=== PATIENT | female | born 1960 | race Caucasian/White ===

== ENCOUNTER 2023-06-23 11:41 | Emergency (ER) | payer OTHER, SELFPAY ==
[2023-06-23 11:45] VITALS: BP 125/78; PULSE 70; TEMP 37.2; O2SAT 98; BMI 26.3
--- NOTE | 2023-06-23 11:55 | XR_ITS ---
The [address] [address] Patient Name: EMRE HERNANDEZ MRN: [id number] date: 1960 Sex: F Assigned Patient Location: ER Current Patient Location: ER Accession/Order Number: [id number] Exam Date: 06/23/2023 12:10 Report Date: 06/23/2023 13:59 At the request of: SHANELL DE LOS SANTOS Procedure: XR knee RT 3V EXAM: XR knee RT 3V HISTORY: fall COMPARISON: None. TECHNIQUE: 3 views of the right knee. FINDINGS: Bony alignment appears preserved. Mild tricompartmental marginal spur is noted. Subchondral cystic change at the patella. Small knee joint effusion. No acute fracture identified. No prepatellar soft tissue spine. No radiopaque foreign body is seen. XR/XR knee RT 3V IMPRESSION: 1. No acute fracture identified. 2. Mild to moderate tricompartmental osteoarthritis. 3. Small knee joint effusion. Electronically authenticated by: MOIRA DAVE Date: 06/23/2023 13:59
--- NOTE | 2023-06-23 11:55 | CT_ITS ---
The [address] [address] Patient Name: EMRE HERNANDEZ MRN: [id number] date: 1960 Sex: F Assigned Patient Location: ER Current Patient Location: .[facility] Accession/Order Number: [id number] Exam Date: 06/23/2023 12:10 Report Date: 06/23/2023 13:01 At the request of: SHANELL DE LOS SANTOS Procedure: CT head/brain wo con EXAM: CT head/brain wo con; [id number] REASON FOR EXAM: fall, hit left eyebrow area COMPARISON: CT sinuses 10/31/2019. TECHNIQUE: Axial CT images of the head obtained without contrast. Multiplanar reformats generated at the scanner. Dose reduction technique used: Automated exposure control and/or adjustment of the mA and/or kV according to patient size and/or use of iterative reconstruction technique. FINDINGS: Parenchyma: -Normal parenchymal pattern. -No midline shift or mass effect. Basilar cisterns are patent. -No acute intracranial hemorrhage. -No loss of cortical parikh-white differentiation to indicate acute cortical infarct. Extra-axial spaces: No extra-axial fluid collection or hemorrhage. Ventricles: Normal in size and symmetric. Paranasal sinuses: Sinus mucosal thickening without layering sinus fluid. Mastoid air cells: Partial opacification of the left mastoid air cells. The right mastoid air cells and bilateral middle ears are clear. Orbits: No acute abnormality. Osseous: No acute findings. No facial fracture within the [id number]-[id number]. Soft tissues: Mild soft tissue swelling over the left superior orbital ridge. CT/CT head/brain wo con IMPRESSION: 1. No acute intracranial abnormality demonstrated. 2. No facial fracture within the [id number]. Electronically authenticated by: ISABEL WISE Date: 06/23/2023 13:01
--- NOTE | 2023-06-23 11:56 | ED.LOWEXI1 ---
HPI HPI - Extremity Injury (Lower) General Chief Complaint: Extremity Injury, Lower Stated Complaint: FALL Time Seen by Provider: 06/23/23 11:47 Source: patient Mode of arrival: walk-in History of Present Illness HPI Narrative: 62-year-old female presents because she fell today at 7:45 AM. She slipped on wet steps and hit her left eyebrow area on the metal hand railing. Since then she has been dizzy and lightheaded. No LOC or neck pain. She also hit her right knee and that is been hurting as well. She actually had some discomfort in it for few weeks before she fell as well. No other injury otherwise was sustained. Related Data Previous Rx's ?Medication ?Instructions ?Recorded ibuprofen 800 mg tablet 800 mg PO Q8H PRN pain #20 tabs 06/23/23 Allergies Allergy/AdvReac Type Severity Reaction Status Date / Time No Known Drug Allergies Allergy Verified 06/23/23 11:49 Opioid HPI Opioid Management Most Recent Pain and Opioid Data: Last Pain Scale 5 06/23/23 12:15 Review of Systems ROS Narrative A ten point review of systems is negative except as noted above. Exam Narrative Exam Narrative: Nurses note and vital signs reviewed and patient is not hypoxic. General: The patient appears well and in no apparent distress. Patient is resting comfortably on cart. Skin: Warm, dry, no pallor noted. There is no rash noted. Head: Normocephalic, small hematoma present without laceration of the left eyebrow. Cervical spine nontender. Eye: Normal conjunctiva, no drainage Ears, Nose, Mouth, and Throat: oral mucosa is moist. Nares patent. Cardiovascular: Regular Rate and Rhythm Respiratory: Patient is in no distress, no accessory muscle use, lungs are clear to auscultation, no wheezing, rales or rhonchi Back: non-tender GI: Soft and nontender Musculoskeletal: Right hip and ankle are nontender. She has some tenderness in the right knee with perhaps some minimal swelling. No obvious deformity. Neurological: A&O, normal speech Psychiatric: Cooperative Constitutional Vital Signs, click to edit/add: Last Vital Signs Temp 99.0 F 06/23/23 11:45 Pulse 70 06/23/23 11:45 Resp 16 06/23/23 11:45 BP 125/78 06/23/23 11:45 Pulse Ox 98 06/23/23 11:45 O2 Del Method Room Air 06/23/23 11:45 Course Vital Signs Vital signs: Vital Signs Temperature 99.0 F 06/23/23 11:45 Pulse Rate 70 06/23/23 11:45 Respiratory Rate 16 06/23/23 11:45 Blood Pressure 125/78 06/23/23 11:45 Pulse Oximetry 98 06/23/23 11:45 Oxygen Delivery Method Room Air 06/23/23 11:45 Temperature 99.0 F 06/23/23 11:45 Pulse Rate 70 06/23/23 11:45 Respiratory Rate 16 06/23/23 11:45 Blood Pressure 125/78 06/23/23 11:45 Pulse Oximetry 98 06/23/23 11:45 Oxygen Delivery Method Room Air 06/23/23 11:45 MDM - Extremity Injury (Lower) MDM Narrative Medical decision making narrative: Radiographs showed no acute findings. She has been having issues with that right knee for several weeks and she is referred to orthopedics for follow-up. Treatment diagnosis and follow-up were discussed with the patient. Differential Diagnosis Differential diagnosis: Likely other (Forehead contusion, intracranial hemorrhage, right knee contusion) Imaging Data CT scan - head: Radiologist's impression: ITS Impressions Head CT 06/23/23 11:55 IMPRESSION: 1. No acute intracranial abnormality demonstrated. 2. No facial fracture within the [id number]-kh-uxdi. Electronically authenticated by: ISABEL WISE Date: 06/23/2023 13:01 Knee X-Ray 06/23/23 11:55 IMPRESSION: 1. No acute fracture identified. 2. Mild to moderate tricompartmental osteoarthritis. 3. Small knee joint effusion. Electronically authenticated by: MOIRA DAVE Date: 06/23/2023 13:59 Discharge Plan Discharge Stand Alone Forms: Portal Instructions Chief Complaint: Extremity Injury, Lower Clinical Impression: Forehead contusion, Knee pain, right Patient Disposition: Home, Self-Care Time of Disposition Decision: 14:03 Condition: Good Mode of Transportation: Private Vehicle Prescriptions / Home Meds: New ibuprofen 800 mg tablet 800 mg PO Q8H PRN (Reason: pain) Qty: 20 0RF Print Language: Kyrgyz Instructions: Knee Pain (ED), Facial Contusion (ED) Additional Instructions: See Dr. Zuniga at 9:30 AM on June 25. Referrals: Obermeyer,Araceli, DRYWALL FOREMAN [Primary Care Provider] - 1 week
[2023-06-23 13:18] VITALS: BP 134/75; PULSE 81; O2SAT 98
== END 2023-06-23 14:09 | disposition home or self-care (01) ==
PROVIDERS: Emergency Provider Emergency Medicine; PCP Registered Nurse
DX: M25.561 Pain in right knee (principal); S00.83XA Contusion of other part of head, initial encounter; W10.9XXA Fall (on) (from) unspecified stairs and steps, initial encounter
CPT/HCPCS: 70450; 73562; 99284

== ENCOUNTER 2024-10-11 15:35 | Observation (INO) | payer OTHER, SELFPAY ==
--- OUTSIDE RECORDS SUMMARY | 2019-04-16 03:59 | XMS_ITS | Continuity of Care Document ---
Author Organization [facility] Address [address] [place] [address] Phone Care Team Providers Care Certified Professional Coder Name Role Phone Garo Fontenot DO Unavailable Unavailable Allergies, Adverse Reactions, Alerts Substance Reaction Status Criticality No Known Allergies Active No Inform ation Medications Medication Instructions Dosage Effective Dates (start - stop) Status Comments OMEPRAZOLE DR 40 MG CAPSULE TAKE 1 CAPSULE BY MOUTH EVERY DAY - Active BUPROPION HCL SR 100 MG TABLET TAKE 1 TABLET BY MOUTH TWICE A DAY 100 MG - Active BREO ELLIPTA 100-25 MCG INH INHALE 1 PUFF BY MOUTH EVERYDAY AT THE SAME TIME - Active IBUPROFEN 800 MG TABLET TAKE 1 TABLET BY MOUTH THREE TIMES A DAY NEEDED - Active GABAPENTIN 800 MG TABLET TAKE 1 TABLET BY MOUTH THREE TIMES A DAY - Active Atrovent HFA 17 mcg/actuation aerosol inhaler INHALE 2 PUFFS 4 TIMES EVERY DAY - Active ondansetron 4 mg disintegrating tablet take 1 tablet by oral route every [address] on top of the tongue where they will dissolve, then swallow as needed for Nausea 4 MG - Active buprenorphine 8 mg-naloxone [address] 1.5 tablet by sublingual route every day allow to dissolve slowly in mouth without chewing or swallowing 1.5 tablet - Active F11.10, [id number] ranitidine 300 mg capsule take 1 capsule by oral route every day at bedtime - Active OMEPRAZOLE DR 40 MG CAPSULE TAKE 1 CAPSULE BY MOUTH EVERY DAY - No Longer Active Procedures Procedure Date DRUG TEST PRSMV DIR OPT OBS OFFICE/OUTPATIENT VISIT, EST Office Visit/[facility] DRUG TEST PRSMV DIR OPT OBS OFFICE/OUTPATIENT VISIT, EST Office Visit/[facility] DRUG SCREENING FENTANYL DRUG TEST PRSMV DIR OPT OBS DRUG TEST PRSMV DIR OPT OBS DRUG SCREENING F[place] OFFICE/OUTPATIENT VISIT, EST IMMUNIZATION ADMIN HEP A VACCINE, ADULT IM OFFICE/OUTPATIENT VISIT, EST DRUG SCREENING FENTANYL DRUG TEST PRSMV DIR OPT OBS Advance Directives Directive Yes / No Effective Date File Name No Information Encounters Encounter Description Practice Location Reason(s) For Visit Diagnoses Date Provider Providers Copied on Encounter [facility], [address] [place] [address], [id number] , [place] tel: [phone] [facility] No Information 0 Pavlock DO Max. [address] [place] [address], [id number] , [place]. tel: [phone] [facility], [address] [place] [address], [id number] , [place] tel: [phone] [facility] No Information 0 Pavlock DO Max. [address] [place] [address], [id number] , [place]. tel: [phone] [facility], [address] [place] [address], [id number] , [place] tel: [phone] [facility] No Information 9 Pavlock DO Max. [address] [place] [address], [id number] , [place]. tel: [phone] [facility], [address] [place] [address], [id number] , [place] tel: [phone] [facility] No Information 9 [facility]. [address] [place], [place], [id number] , [place]. tel: [phone] [facility], [address], [place], [id number] , [place] tel: [phone] [facility] No Information 9 [facility] Max. [address], [place], [id number] , [place]. tel: [phone] [facility], [address], [place], [id number] , [place] tel: [phone] [facility] No Information 9 [facility]. [address], [place], [id number] , [place]. tel: [phone] OFFICE/OUTPA TIENT VISIT, [facility], [address], [place], [id number] , [place] tel: [phone] [facility] SUBOXONE (chief complaint) DRUG SCREEN (chief complaint) Uncomplicated opioid abuseBody mass index (BMI) 25.0-25.9, adult 9 [facility]. [address], [place], [id number] , [place]. tel: [phone] OFFICE/OUTPA TIENT VISIT, [facility], [address], [place], [id number] , [place] tel: [phone] [facility] SUBOXONE (chief complaint) DRUG SCREEN (chief complaint) Body mass index (BMI) 25.0-25.9, adultUncomplicated opioid abuse 9 [facility]. [address], [place], [id number] , [place]. tel: [phone] [facility], [address], [place], [id number] , [place] tel: [phone] [facility] SUBOXONE (chief complaint) DRUG SCREEN (chief complaint) Carpal tunnel syndrome on both sidesBody mass index (BMI) 26.0-26.9, adultUncomplicated opioid abuse 2 0- 9 Pavlock DO Max. [address], [place], [id number] , [place]. tel:[phone] OFFICE/OUTPA TIENT VISIT, [facility], [address], [place], [id number] , [place] tel: [phone] [facility] SUBOXONE (chief complaint) DRUG SCREEN (chief complaint) Body mass index (BMI) 26.0-26.9, adultUncomplicated opioid abuse 0 6 9 Pavlock DO Max. [address], [place], [id number] , [place]. tel: [phone] [facility], [address] [place] [address], [id number] , [place] tel: [phone] [facility] Suboxone (chief complaint) Drug Screen (chief complaint) Body mass index (BMI) 26.0-26.9, adultAnxiety and depressionUncomplicat ed opioid abuse 9 Pavlock DO Max. [address], [place], [id number] , [place]. tel: [phone] [facility], [address], [place], [id number] , [place] tel: [phone] [facility] Suboxone (chief complaint) Drug Screen (chief complaint) Uncomplicated opioid abuseMuscle spasmBody mass index (BMI) 26.0-26.9, adult 9 Pavlock DO Max. [address], [place], [id number] , [place]. tel: [phone] OFFICE/OUTPA TIENT VISIT, [facility], [address] [place] [address], [id number] , [place] tel: [phone] [facility] suboxone (chief complaint) Drug Screen (chief complaint) Body mass index (BMI) 26.0-26.9, adultUncomplicated opioid abuseNauseaGERD without esophagitis 9 [facility]. [address], [place], [id number] , [place]. tel: [phone] [facility], [address], [place], [id number] , [place] tel: [phone] [facility] Suboxone (chief complaint) Drug Screen (chief complaint) Uncomplicated opioid abuseAnxiety and depressionBody mass index (BMI) 25.0-25.9, adult 9 [facility]. [address], [place], [id number] , [place]. tel: [phone] [facility], [address], [place], [id number] , [place] tel: [phone] [facility] Suboxone (chief complaint) Body mass index (BMI) 26.0-26.9, adultUncomplicated opioid abuseAnxiety and depressionMajor depressive disorder, single episode, unspecifiedNauseaCOPD mixed type 9 [facility]. [address], [place], [id number] , [place]. tel: [phone] [facility], [address], [place], [id number] , [place] tel: [phone] [facility] No Information 8 [facility] Micky. [address] [place] [address], [id number] , [place]. tel: [phone] Family History Family Member Type Diagnosis Age At Onset Mother Problem (finding) a-fib Father Problem (finding) cystic fibrosis Mother Problem (finding) hypertension Mother Problem (finding) Alive and well Immunizations Vaccine Date Status Comments Hep A (adult) administered Source: New Im munization Record Payers Payer name Insurance type Covered democrat ID Authoriza tion(s) Medicaid [facility] [id number] Social History Type Description Quantity Date Captured Comments Sex Female Smoking Status No Information Sexual Orientation Straight or heterosexual Feb Gender Identity Female Chief Complaint And Reason For Visit No Information Reason For Referral Reason For Referral No Information Plan Of Treatment Date Type Action Status Goal Tobacco cessation counseling completed Goal Dietary manageme nt education, guidance, and counseling completed Goal Tobacco cessation counseling completed Goal Dietary manageme nt education, guidance, and counseling completed Goal Tobacco cessation counseling completed Goal Dietary manageme nt education, guidance, and counseling completed Goal Dietary manageme nt education, guidance, and counseling completed Goal Tobacco cessation counseling completed Goal Tobacco cessation counseling completed Goal Dietary manageme nt education, guidance, and counseling completed Goal Dietary manageme nt education, guidance, and counseling completed Goal Tobacco cessation counseling completed Goal Tobacco cessation counseling completed Goal Dietary manageme nt education, guidance, and counseling completed Goal Tobacco cessation counseling completed Goal Dietary manageme nt education, guidance, and counseling completed Goal Dietary manageme nt education, guidance, and counseling completed Goal Tobacco cessation counseling completed Future Order: Lab Order Complian ce Drug Analysis, Ur ([id number]), Collected on: , Sent on: Sent Future Order: Lab Order Urine, N aloxone Urine Cofirm ([id number]), Collected on: , Sent on: Sent History Of Present Illness Encounter Date Complaint History Of Prese nt Illness SUBOXONE Pt here with her granddaughter today for Suboxone tab refill. PT has an apt with [facility] in [place] for counseling on 11/06. PT NEEDS REFILLS ON BREO, ATROVENT & ZOFRAN. Pt states she quit taking the Wellbutrin & Celexa. Pt states they made her too tired. OARRS completed, last filled Suboxone 09/28 for 15 days & Gabapentin 7/3TGrodi VAT CLEANER DRUG SCREEN Rapid urine drug screen performed, pt + for BUPTGrodi LPNLast UDS, pt was + Ambien, but negative Wellbutrin & Celexa ,above was reviewed and agreed with and we had long discussion about her mothers care in [place] DRUG SCREEN Rapid urine drug screen performed. Patient positive for BUP.Fentanyl negative.Danielle Godoy SUBOXONE Patient presents for Suboxone refill. Has appointment with [facility] in [place] 11/06/18.OARRS completed. Last filled Suboxone 08/30/18. Last filled Gabapentin 09/12/18.Last urine drug screen on 08/30/18, patient was positive for Ambien, negative Cymbalta, Celexa and Naloxone.PATIENT REQUESTING REFILL ON ZOFRAN.No other concerns at this time.--Danielle Godoy Pt states doing well not having any new problems ,above was reviewed and agreed with DRUG SCREEN Rapid urine drug screen performed, pt + for BUP Fentanyl NEGTGrodi VAT CLEANER SUBOXONE Pt here today fo r Suboxone tab refill. PT has an apt with [facility] in [place] on T NEEDS REFILLS ON PRILOSEC, ATROVENT, IBUPROFEN, ZOFRAN & LEXAPROPHQ indicates mild depression. Pt states her mom is in the hospital and not doing well. Pt states she quit taking the Cymbalta. She said it made her too tired. OARRS completed, last filled Suboxone 08/16 for 14 days & Gabapentin /5TGrodi VAT CLEANER ,above was reviewed and agreed with DRUG SCREEN Rapid urine drug screen performed, pt + for BUPFentanyl NEGTGrodi VAT CLEANER SUBOXONE Pt here today fo r Suboxone tab refill. Pt states the day she was supposed to go to counseling her mother fell and she had to take her to the ER. She said she called them and rescheduled. Pt is rescheduled for September 10. Pt states she is having a lot of numbness in her hands. Pt states Cymbalta did not help her at all. She states she doesnt feel like the Lexapro is either. PT NEEDS REFILL ON ATROVENT, BREO, OARRS completed, last filled Suboxone 07/19, Gabapentin /TGrodi VAT CLEANER ,above was reviewed and agreed with Drug Screen Rapid urine drug screen performed, pt + for BUPFentanyl NEGTGrodi VAT CLEANER Suboxone Pt here today fo r Suboxone tab refill. Pt has apt July 23 for counseling at [facility]. PT NEEDS REFILLS ON GABAPENTIN, IBUPROFEN, ZOFRAN, ATROVENT BREOPHQ INDICATES MILD DEPRESSION. OARRS completed, last filled Suboxone 06/21 & Gabapentin 06/19TGrodi LPNPt states she is very stress with everything going on Drug Screen Rapid urine drug screen performed, pt + for BUPFentanyl negTGrodi VAT CLEANER Suboxone Pt here today fo r Suboxone tab refill. Pt has apt scheduled for counseling on 07/23 at [facility] Pt has bottle with her today that is empty.OARRS completed, last filled Gabapentin & Suboxone 05/24TGrodi LPNPt states she hurt her back yesterday and itis really tight Drug Screen Rapid urine drug screen performed, pt + for Buprenorphine, MOP line very light. Fentanyl negTGrodi VAT CLEANER suboxone pt here today fo r Suboxone tab refill. Pt is attending counseling at [facility]. Pt needs refills on Gabapentin & Ranitidine & wants some nausea pills. Pt does not have bottle with her today. She asked if she is supposed to bring every month and I said yes, it is in contract. OARRS completed, last filled, Suboxone 04/26 & Gabapentin 04/24TGrodi VAT CLEANER Pt states doing well not having any new problems ,above was reviewed and agreed with Suboxone Pt here today fo r Suboxone tab refill. Pt [facility] her today. States she does not have any left but should have 2 days left. Pt called and stated that she could not take the Wellbutrin medication it made her crazy. She stated she could not come in for apt but did increase her Suboxone to 2 tablets a day. This part was never discussed with us or the provider. OARRS completed, last filled 03/29 Suboxone & Lomotil /Grodi LPNPt state she is really having a lot of stress above was reviewed and agreed with Drug Screen Rapid urine drug screen performed, pt + Sindy CAMDEN Suboxone Pt here today fo r Suboxone tab refills, Gabapentin & Stomach medication. Pt states she is attending counseling at [facility] in [facility] states she is going to talk about getting put on Valium. She states she is having panic attacks and has alot of stress at home with having custody of grandchildren and her daughter is now using crystal meth. PHQ indicates moderate severe depressionOARRS completed, last filled 02/27 45 tabsPt does not have any tablets left but has the bottle with her. TGrodi VAT CLEANER we discussed problems with the pt and starting some new medications and got social work involved Functional Status Date Functional Assessmen t No Information Instructions Date Instruction Additional Infor palma Giving encouragement to exercise Related to Body mass index (BMI) 25.0-25.9, adult Dietary management e ducation, guidance, and counseling Related to Body mass index (BMI) 25.0-25.9, adult Giving encouragement to exercise Related to Body mass index (BMI) 25.0-25.9, adult Dietary management e ducation, guidance, and counseling Related to Body mass index (BMI) 25.0-25.9, adult Giving encouragement to exercise Related to Body mass index (BMI) 26.0-26.9, adult Dietary management e ducation, guidance, and counseling Related to Body mass index (BMI) 26.0-26.9, adult Dietary management e ducation, guidance, and counseling Related to Body mass index (BMI) 26.0-26.9, adult Giving encouragement to exercise Related to Body mass index (BMI) 26.0-26.9, adult Dietary management e ducation, guidance, and counseling Related to Body mass index (BMI) 26.0-26.9, adult Giving encouragement to exercise Related to Body mass index (BMI) 26.0-26.9, adult Dietary management e ducation, guidance, and counseling Related to Body mass index (BMI) 26.0-26.9, adult Giving encouragement to exercise Related to Body mass index (BMI) 26.0-26.9, adult Giving encouragement to exercise Related to Body mass index (BMI) 26.0-26.9, adult Dietary management e ducation, guidance, and counseling Related to Body mass index (BMI) 26.0-26.9, adult Dietary management e ducation, guidance, and counseling Related to Body mass index (BMI) 25.0-25.9, adult Giving encouragement to exercise Related to Body mass index (BMI) 25.0-25.9, adult Dietary management e ducation, guidance, and counseling Related to Body mass index (BMI) 26.0-26.9, adult Giving encouragement to exercise Related to Body mass index (BMI) 26.0-26.9, adult Assessments Type Assessment Date No Information Patient Care Teams Name Effective Dates (start - stop) Status Members No Information
--- OUTSIDE RECORDS SUMMARY | 2023-08-14 06:00 | XMS_ITS ---
Author Organization [facility] Address [address] [place] [address] Care Team Providers Care Corporate Responsibility Officer Name Role Phone Imer Zuniga Unavailable [phone] REASON FOR VISIT RIGHT KNEE OA Medications Medication SIG (Take, Route, Frequency, Duration) Notes Start Date End Date Status omeprazole Active Symbicort Active gabapentin Active Suboxone Active albuterol Active Mobic 15 mg 1 tab(s) orally once a day for 45 days 06/26/2023 Active Encounters Encounter Location Date Provider Diagnosis [facility] [address] [place] [address] [place] [address] 08/14/2023 Imer Zuniga Plan Of Treatment No Information Progress Notes * EMRE HERNANDEZ ShyDOB:1960 (63 yo F)Acc No.[id number]:08/14/2023 Patient: EMRE MEMBRENO Provider: Jimena Zuniga MD :1960 A ge:62 Y S ex:Female Date:08/14/2023 Address:[address] [place], [place] [id number] Subjective: * Chief Complaints: * 1 . RIGHT KNEE OA. * Medical History: * Medications: T aking Mobic 15 mg tablet 1 tab(s) orally once a day , Taking Suboxone , Taking albuterol , Taking Symbicort , Taking gabapentin , Taking omeprazole Objective: * Vitals: Assessment: Plan: * Treatment: Forms: * Images: * Electronic signature of Gigi Zuniga MD on 10/11/2024 at 03:46 PM EDT Sign off status: Pending * Provider: Jimena Zuniga MD Date: 0 08/14/2023 Generated for Goldy castano/Ashlee/Dani on: 0 10/11/2024 03:46 PM EDT
[2024-10-11] VITALS (18 sets, daily range): BP systolic 111–142; BP diastolic 67–86; PULSE 73–90; TEMP 36.7–37; O2SAT 93–98; BMI 24.2; BMI 24.1
--- OUTSIDE RECORDS SUMMARY | 2024-10-11 15:47 | XMS_ITS | Patient Health Record ---
Author Organization [facility] Address [address] [place] [address] Support Name Relationship Address Phone HERNANDEZ, EMRE Guarantor Unknown [phone] Allergies No Known Allergies Reason For Referral No Information Medications Medication SIG (Take, Route, Frequency, Duration) Notes Start Date End Date Status omeprazole Active Symbicort Active gabapentin Active Suboxone Active albuterol Active Mobic 15 mg 1 tab(s) orally once a day for 45 days 06/26/2023 Active Social History Tobacco Use: Social History Observation Description Date Details (start date - stop date) Unknown AUDIT-C (Standard) Question Answer Notes Did you have a drink containing alcohol in the p ast year? No Points 0 Interpretation Negative Tobacco Control (Standard) Question Answer Notes Tobacco use: Uses tobacco in other forms Problems Problem Type SNOMED Code ICD Code Onset Dates Problem Status W/U Status Risk Notes Problem Primary osteoarthritis of right knee (M17.11) Active confirmed Plan Of Treatment No Information Insurance Providers Payer Name Payer Address Payer Phone Subscriber Number Group Number Insured Name Patient Relationship to Insured Coverage Start Date Coverage End Date Medicaid [employer] [place] [address] [place] [address] [id number] EMRE HERNANDEZ Self - patient is the insured Medical (General) History Medical History History ICD Code Asthma/COPD: yes Depression: yes Respiratory problems: yes Mental Illness: yes Anxiety: yes Surgical History Surgery Date(Month/Year) Sinus surgery x2 Gallbladder removed Blood clot/stripped vein, right leg
--- NOTE | 2024-10-11 15:55 | XR_ITS ---
[address] [address] Patient Name: EMRE HERNANDEZ MRN: [id number] date: 1960 Sex: F Assigned Patient Location: ER Current Patient Location: ER Accession/Order Number: [id number] Exam Date: 10/11/2024 16:22 Report Date: 10/11/2024 16:24 At the request of: SALEEM PIERCE Procedure: XR chest 1V XR chest 1V 10/11/2024 4:07 PM SIGNS AND SYMPTOMS: Weakness, altered mental status PROTOCOL: Frontal radiograph of the chest COMPARISON: 10/31/2019 FINDINGS: The trachea is midline. The heart and mediastinal structures are within normal limits. The lung parenchyma is clear. The bony thorax is intact. Degenerative changes are noted in the shoulders. XR/XR chest 1V IMPRESSION: No acute cardiopulmonary pathology. Impression dictated by: Balta Guzman M.D. 10/11/2024 4:24 PM Dictation Location: [place] [address] Electronically authenticated by: [id number] Y Date: 10/11/2024 16:24
--- NOTE | 2024-10-11 15:55 | CT_ITS ---
The [address] [address] Patient Name: EMRE HERNANDEZ MRN: [id number] date: 1960 Sex: F Assigned Patient Location: ER Current Patient Location: ER Accession/Order Number: [id number] Exam Date: 10/11/2024 16:20 Report Date: 10/11/2024 16:22 At the request of: SALEEM PIERCE Procedure: CT stroke head/brain wo con CT stroke head/brain wo con 10/11/2024 4:07 PM SIGNS AND SYMPTOMS: AMS TECHNIQUE:Multi-detector CT axial slices of the brain were obtained without IV contrast. CT was performed with one or more of the following dose reduction techniques: Automated exposure control, adjustment of the mA and/or kV according to patient size, or use of iterative reconstruction technique. COMPARISON: 06/23/2023 FINDINGS: There is no shift of the midline structures, acute intracranial bleeding, mass effects, or evidence of acute ischemia. There is mild age-related cortical atrophy. The ventricular system is normal in size. The brainstem and the cerebellum are unremarkable. The visualized intraorbital contents, the visualized paranasal sinuses, and the infratemporal soft tissues show no acute abnormality. The osseous structures in the skull base and the calvarium show no abnormality. CT/CT stroke head/brain wo con IMPRESSION: No acute intracranial pathology. Mild age-related cortical atrophy is noted. Impression dictated by: Balta Guzman M.D. 10/11/2024 4:22 PM Dictation Location: [place] [address] Electronically authenticated by: [id number] Y Date: 10/11/2024 16:22
--- NOTE | 2024-10-11 15:55 | ECG_ITS ---
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 Measurements Intervals Robbins Rate: 87 P: 56 AZ: 128 QRS: 87 QRSD: 84 T: 9 QT: 390 QTc: 434 Interpretive Statements 1100 Sinus rhythm 4068 Nonspecific Twave abnormality 9130 borderline ECG Compared to ECG 10/24/2018 17:51:47 No significant changes Electronically Signed On 10-11-2024 18:32:23 EDT by ALISSON WALTER M.D.
--- NOTE | 2024-10-11 15:58 | ED.GENADUL1 ---
HPI HPI - General Adult General Chief complaint: Weakness Stated complaint: WEAKNESS, CONFUSION Time Seen by Provider: 10/11/24 15:41 Source: patient and family Source information: daughter Mode of arrival: Wheelchair Limitations: altered mental status History of Present Illness HPI narrative: Patient presents to the emergency department with daughter with 3-day history of generalized malaise, fatigue, confusion and altered mental status. Daughter states that she has not been able to get the patient to get out of bed she has not eaten or drink in the last 2 days as well as not taking her medicines including Suboxone. Daughter states similar episode of this 1 month ago that lasted for approximately 5 days and subsequently resolved without intervention. She was not able to be evaluated at that time as the patient refused to go to the hospital and did not go to her follow-up doctors appointments she was scheduled for. Patient is currently alert and oriented x [address] but not oriented to time. Patient does not provide much insight into the nature of her illness but states that she feels tired has had nausea and diarrhea but denies any vomiting but denies any headache, dizziness, chest pain, shortness of breath, abdominal pain, weakness numbness or tingling Onset (ago): day(s) (3) Related Data Home Medications ?Medication ?Instructions ?Recorded ?Confirmed buprenorphine 8 mg-naloxone 2 mg film 10/11/24 sublingual film gabapentin 800 mg tablet mg 10/11/24 omeprazole 40 mg capsule,delayed mg 10/11/24 release Previous Rx's ?Medication ?Instructions ?Recorded ibuprofen 800 mg tablet 800 mg PO Q8H PRN pain #20 tabs 06/23/23 Allergies Allergy/AdvReac Type Severity Reaction Status Date / Time No Known Drug Allergies Allergy Verified 10/11/24 15:41 Opioid HPI Opioid Management Most Recent Opioid Data: Last Pain Scale 5 06/23/23, 12:15 Ur Phencyclidine Scrn, (NEGATIVE) Negative Today, 15:55 Review of Systems ROS Status of ROS unobtainable due to mental status Constitutional Reports: fatigue and malaise; Denies: fever Eyes Denies: change in vision Cardiovascular Denies: chest pain Respiratory Reports: wheezing Gastrointestinal Reports: nausea and diarrhea; Denies: abdominal pain or vomiting PFSH PFSH Social History Little interest or pleasure in doing things: not at all Feeling down, depressed, or hopeless: not at all Exam Constitutional Vital Signs, click to edit/add: Last Vital Signs Temp 98.1 F 10/11/24 15:41 Pulse 81 10/11/24 16:18 Resp 18 10/11/24 15:41 BP 142/82 H 10/11/24 15:41 Pulse Ox 97 10/11/24 16:18 O2 Del Method Room Air 10/11/24 16:18 Documenting provider has reviewed patient's vital signs: yes Common normals: no apparent distress and alert Exam limitations: altered mental status General appearance: cooperative Orientation/consciousness: Yes confused; not oriented to time HENNC Common normals: normocephalic Eye Common normals: PERRL and EOMs intact bilaterally Chest Common normals: inspection of chest normal Respiratory Common normals: normal respiratory effort Auscultation: rhonchi and wheezes Cardio Common normals: no JVD and regular rate GI Common normals: Normal to inspection, nondistended, normoactive bowel sounds present Neuro Common normals: CN's II-XII intact bilaterally, no focal motor deficits and no sensory deficits noted Sensorium/orientation: awake, alert, orientation impaired and somnolent; not oriented to time Course Vital Signs Vital signs: Vital Signs Temperature 98.1 F 10/11/24 15:41 Pulse Rate 82 10/11/24 15:41 Respiratory Rate 18 10/11/24 15:41 Blood Pressure 142/82 H 10/11/24 15:41 Pulse Oximetry 97 10/11/24 15:41 Oxygen Delivery Method Room Air 10/11/24 15:41 Temperature 98.1 F 10/11/24 15:41 Pulse Rate 81 10/11/24 16:18 Respiratory Rate 18 10/11/24 15:41 Blood Pressure 142/82 H 10/11/24 15:41 Pulse Oximetry 97 10/11/24 16:18 Oxygen Delivery Method Room Air 10/11/24 16:18 Medical Decision Making MDM Narrative Medical decision making narrative: Patient presented to the emergency department with family who reported the patient has had generalized weakness, fatigue and altered mental status over the past 2 to 3 days. Patient is ANO x 2 on emergency department arrival. Patient does state that she has had some diarrhea but denies any associated abdominal pain. Patient denies any known fevers, chills, chest pain, cough or congestion. Mild headache but no neck pain or meningismus. Patient had no focal neurologic deficits on exam a CT of her head noncontrast showed nothing acute. Patient had some expiratory wheezing bilaterally secondary to her known history of COPD but x-ray shows no obvious infiltrates to suggest pneumonia. ABG shows no acidosis. Electrolytes unremarkable but BUN/creatinine ratio greater than 20-1 and urinalysis without UTI but does show great high specific gravity and ketones suggestive of dehydration. Patient received IV fluids in the emergency department. Given patient's weakness, dehydration and persistence and altered mental status she will be admitted in the hospital for further evaluation and care Differential Diagnosis Differential Diagnosis: CVA, UTI, pneumonia, electrolyte anomalies Medical Records Medical records reviewed: Yes I reviewed the patient's medical records Lab Data Lab results reviewed: Yes I reviewed the patient's lab results Labs: Lab Results 10/11/24 10/11/24 10/11/24 Range/Units 15:55 16:12 16:23 WBC 9.9 (4.0-11.0) 10^3/uL RBC 4.24 (4.20-5.40) 10^6/uL Hgb 12.4 (12.0-16.0) g/dL Hct 35.3 L (36.0-48.0) % MCV 83.3 (81.0-99.0) fL MCH 29.2 (26.7-34.0) pg MCHC 35.1 (29.9-35.2) g/dL RDW 12.3 (11.0-15.0) % Plt Count 272 (150-450) 10^3/uL MPV 8.4 L (9.5-13.5) fL Neut % (Auto) 67.0 (43.0-75.0) % Lymph % (Auto) 25.8 (20.5-60.0) % Vernon % (Auto) 4.9 (1.7-12.0) % Eos % (Auto) 1.1 (0.9-7.0) % Baso % (Auto) 0.9 (0.2-2.0) % Neut # (Auto) 6.6 H (1.4-6.5) 10^3/uL Lymph # (Auto) 2.5 (1.2-3.8) 10^3/uL Vernon # (Auto) 0.5 (0.3-0.8) 10^3/uL Eos # (Auto) 0.1 (0.0-0.7) 10^3/uL Baso # (Auto) 0.1 (0.0-0.1) 10^3/uL Abs Immat Gran (auto) 0.03 (0.00-0.03) 10^3/uL Imm/Tot Granulo (auto) 0.3 (0.0-0.5) % PT 10.6 (9.0-11.6) sec INR 1.00 Puncture Site Rr ABG pH 7.405 (7.350-7.450) ABG pCO2 34.7 L (35.0-45.0) mmHg ABG pO2 77.4 L (80.0-100.0) mmHg ABG HCO3 21.7 L (22.0-26.0) mmol/L ABG O2 Saturation 96.7 % ABG Base Excess -3.0 L (-2.0-2.0) mmol/L Abundio Test Positive (POSITIVE) Sodium 135 L (136-145) mmol/L Potassium 3.5 (3.5-5.1) mmol/L Chloride 98 (98-107) mmol/L Carbon Dioxide 27.5 (21.0-32.0) mmol/L Anion Gap 13.0 BUN 16.0 (7.0-18.0) mg/dL Creatinine 0.53 L (0.55-1.02) mg/dL Est GFR ( Amer) >60 (>=60 mL/min/1.73m^2) Est GFR (Non-Af Amer) >60 (>=60 mL/min/1.73m^2) BUN/Creatinine Ratio 30.2 Glucose 104 (74-106) mg/dL Lactate 1.0 (0.4-2.0) mmol/L Calcium 9.4 (8.5-10.1) mg/dL Total Bilirubin 0.5 (0.2-1.0) mg/dL AST 15 (15-37) U/L ALT 14 (14-59) U/L Alkaline Phosphatase 93 (46-116) U/L Ammonia <10 L (11-32) umol/L Troponin I High Sens 4.8 (4.0-51.3) pg/mL C-Reactive Protein 6.49 H (<=0.50) mg/dL Total Protein 7.8 (6.4-8.2) g/dL Albumin 3.7 (3.4-5.0) g/dL Globulin 4.1 g/dL Albumin/Globulin Ratio 0.9 TSH 0.831 (0.358-3.740) uIU/mL Urine Color Yellow (YELLOW) Urine Clarity Clear (CLEAR) Urine pH 6.0 (5.0-9.0) Ur Specific Drummond >=1.030 A (1.005-1.025) Urine Protein 30 A (NEG/TRACE) mg/dL Urine Glucose (UA) Negative (NEGATIVE) mg/dL Urine Ketones >=80 A (NEGATIVE) mg/dL Urine Occult Blood Trace-i (NEGATIVE) Urine Nitrite Negative (NEGATIVE) Urine Bilirubin Small A (NEGATIVE) Urine Urobilinogen 1.0 (0.2-1.0) EU/dL Ur Leukocyte Esterase Negative (NEGATIVE) Urine RBC 5-10 A (0-2) #/HPF Urine WBC 0-2 A (NONE SEEN) #/HPF Ur Squamous Epith Cells Moderate A (NONE/RARE) #/LPF Urine Crystals None seen (None Seen) #/HPF Urine Bacteria Trace A (NONE SEEN) #/HPF Urine Casts None seen (NONE SEEN) #/LPF Urine Mucus Small A (NONE SEEN) Ur Culture Indicated? No Salicylates <2.8 (<=19.9) mg/dL Urine Opiates Screen Negative (NEGATIVE) Ur Buprenorphine Scrn Positive A (NEGATIVE) Ur Oxycodone Screen Negative (NEGATIVE) Urine Methadone Screen Negative (NEGATIVE) Acetaminophen <2.0 L (10.0-30.0) ug/mL Ur Barbiturates Screen Negative (NEGATIVE) U Tricyclic Antidepress Negative (NEGATIVE) Ur Phencyclidine Scrn Negative (NEGATIVE) Ur Amphetamines Screen Negative (NEGATIVE) U Methamphetamines Scrn Negative (NEGATIVE) U Benzodiazepines Scrn Negative (NEGATIVE) Urine Cocaine Screen Negative (NEGATIVE) U Cannabinoids Screen Negative (NEGATIVE) Ethanol Quant <3 mg/dL Influenza Type A Ag Influenza Type B Ag SARS-CoV-2 Ag (CV2AG) (NEGATIVE) 10/11/24 Range/Units 16:48 WBC (4.0-11.0) 10^3/uL RBC (4.20-5.40) 10^6/uL Hgb (12.0-16.0) g/dL Hct (36.0-48.0) % MCV (81.0-99.0) fL MCH (26.7-34.0) pg MCHC (29.9-35.2) g/dL RDW (11.0-15.0) % Plt Count (150-450) 10^3/uL MPV (9.5-13.5) fL Neut % (Auto) (43.0-75.0) % Lymph % (Auto) (20.5-60.0) % Vernon % (Auto) (1.7-12.0) % Eos % (Auto) (0.9-7.0) % Baso % (Auto) (0.2-2.0) % Neut # (Auto) (1.4-6.5) 10^3/uL Lymph # (Auto) (1.2-3.8) 10^3/uL Vernon # (Auto) (0.3-0.8) 10^3/uL Eos # (Auto) (0.0-0.7) 10^3/uL Baso # (Auto) (0.0-0.1) 10^3/uL Abs Immat Gran (auto) (0.00-0.03) 10^3/uL Imm/Tot Granulo (auto) (0.0-0.5) % PT (9.0-11.6) sec INR Puncture Site ABG pH (7.350-7.450) ABG pCO2 (35.0-45.0) mmHg ABG pO2 (80.0-100.0) mmHg ABG HCO3 (22.0-26.0) mmol/L ABG O2 Saturation % ABG Base Excess (-2.0-2.0) mmol/L Abundio Test (POSITIVE) Sodium (136-145) mmol/L Potassium (3.5-5.1) mmol/L Chloride (98-107) mmol/L Carbon Dioxide (21.0-32.0) mmol/L Anion Gap BUN (7.0-18.0) mg/dL Creatinine (0.55-1.02) mg/dL Est GFR ( Amer) (>=60 mL/min/1.73m^2) Est GFR (Non-Af Amer) (>=60 mL/min/1.73m^2) BUN/Creatinine Ratio Glucose (74-106) mg/dL Lactate (0.4-2.0) mmol/L Calcium (8.5-10.1) mg/dL Total Bilirubin (0.2-1.0) mg/dL AST (15-37) U/L ALT (14-59) U/L Alkaline Phosphatase (46-116) U/L Ammonia (11-32) umol/L Troponin I High Sens (4.0-51.3) pg/mL C-Reactive Protein (<=0.50) mg/dL Total Protein (6.4-8.2) g/dL Albumin (3.4-5.0) g/dL Globulin g/dL Albumin/Globulin Ratio TSH (0.358-3.740) uIU/mL Urine Color (YELLOW) Urine Clarity (CLEAR) Urine pH (5.0-9.0) Ur Specific Drummond (1.005-1.025) Urine Protein (NEG/TRACE) mg/dL Urine Glucose (UA) (NEGATIVE) mg/dL Urine Ketones (NEGATIVE) mg/dL Urine Occult Blood (NEGATIVE) Urine Nitrite (NEGATIVE) Urine Bilirubin (NEGATIVE) Urine Urobilinogen (0.2-1.0) EU/dL Ur Leukocyte Esterase (NEGATIVE) Urine RBC (0-2) #/HPF Urine WBC (NONE SEEN) #/HPF Ur Squamous Epith Cells (NONE/RARE) #/LPF Urine Crystals (None Seen) #/HPF Urine Bacteria (NONE SEEN) #/HPF Urine Casts (NONE SEEN) #/LPF Urine Mucus (NONE SEEN) Ur Culture Indicated? Salicylates (<=19.9) mg/dL Urine Opiates Screen (NEGATIVE) Ur Buprenorphine Scrn (NEGATIVE) Ur Oxycodone Screen (NEGATIVE) Urine Methadone Screen (NEGATIVE) Acetaminophen (10.0-30.0) ug/mL Ur Barbiturates Screen (NEGATIVE) U Tricyclic Antidepress (NEGATIVE) Ur Phencyclidine Scrn (NEGATIVE) Ur Amphetamines Screen (NEGATIVE) U Methamphetamines Scrn (NEGATIVE) U Benzodiazepines Scrn (NEGATIVE) Urine Cocaine Screen (NEGATIVE) U Cannabinoids Screen (NEGATIVE) Ethanol Quant mg/dL Influenza Type A Ag Negative Influenza Type B Ag Negative SARS-CoV-2 Ag (CV2AG) Negative (NEGATIVE) Imaging Data CT scan - head: Radiologist's impression: ITS Impressions Brain CT 10/11/24 15:55 IMPRESSION: No acute intracranial pathology. Mild age-related cortical atrophy is noted. Impression dictated by: Balta Guzman M.D. 10/11/2024 4:22 PM Dictation Location: [place] Electronically authenticated by: [id number] Y Date: 10/11/2024 16:22 Chest X-Ray 10/11/24 15:55 IMPRESSION: No acute cardiopulmonary pathology. Impression dictated by: Balta Guzman M.D. 10/11/2024 4:24 PM Dictation Location: [facility] Electronically authenticated by: [id number] Y Date: 10/11/2024 16:24 ECG Data Attestation: ?I have reviewed the pertinent ECG results. Discharge Plan Discharge Chief Complaint: Weakness Clinical Impression: Dehydration Altered mental status Qualifiers: Altered mental status type: disorientation Qualified Code(s): R41.0 - Disorientation, unspecified Patient Disposition: Admitted as Observation Time of Disposition Decision: 17:34 Condition: Fair
[2024-10-11 16:09] LABS: Glucose Urine UA NEGATIVE (NEGATIVE)
[2024-10-11 16:17] LABS: ABG PCO2 34.7 mmHg (35.0-45.0); PO2 ABG 77.4 mmHg (80.0-100.0)
[2024-10-11] MEDS: IPRATROPIUM/ALBUTEROL SULFATE 3 ML AMPUL.NEB IH (16:17)
[2024-10-11 16:18] LABS: Allen Test POSITIVE (POSITIVE); HCO3 ABG 21.7 mmol/L (22.0-26.0); O2 Mode RA; Oxygen Saturation ABG 96.7 %; Puncture Site RR
[2024-10-11 16:22] LABS: Cannabinoid Screen Urine NEGATIVE (NEGATIVE); Cast Seen? NONE SEEN #/LPF (NONE SEEN); Crystals Seen? None Seen #/HPF (None Seen); Methamphetamines Screen Urine NEGATIVE (NEGATIVE); Tricyclic Antidepressant Urine NEGATIVE (NEGATIVE); Urine Culture Indicated NO
[2024-10-11 16:27] LABS: Lactate/Lactic Acid 1.0 mmol/L (0.4-2.0)
[2024-10-11 16:28] LABS: Hematocrit 35.3 % (36.0-48.0); Hemoglobin 12.4 g/dL (12.0-16.0); Immature Granulocytes Abs Auto 0.03 10^3/uL (0.00-0.03); Immature Granulocytes Pct Auto 0.3 % (0.0-0.5); Lymphocytes Absolute Auto 2.5 10^3/uL (1.2-3.8); Mean Corpuscular HGB Conc 35.1 g/dL (29.9-35.2); Mean Corpuscular Hemoglobin 29.2 pg (26.7-34.0); Mean Corpuscular Volume 83.3 fL (81.0-99.0); Platelet Count 272 10^3/uL (150-450); Red Blood Count 4.24 10^6/uL (4.20-5.40); White Blood Count 9.9 10^3/uL (4.0-11.0)
[2024-10-11 16:29] LABS: INR 1.00; Prothrombin Time 10.6 sec (9.0-11.6)
[2024-10-11 16:31] LABS: Salicylate <2.8 mg/dL (<=19.9); Thyroid Stimulating Hormone 0.831 uIU/mL (0.358-3.740)
[2024-10-11 16:33] LABS: Alanine Aminotransferase 14 U/L (14-59); Albumin Globulin Ratio 0.9; Albumin Level 3.7 g/dL (3.4-5.0); Alkaline Phosphatase 93 U/L (46-116); Anion Gap 13.0; Aspartate Amino Transferase 15 U/L (15-37); Blood Urea Nitrogen 16.0 mg/dL (7.0-18.0); Calcium 9.4 mg/dL (8.5-10.1); Carbon Dioxide 27.5 mmol/L (21.0-32.0); Chloride 98 mmol/L (98-107); Estimated GFR (African America >60 (>=60 mL/min/1.73m^2); Estimated GFR (Non-African Ame >60 (>=60 mL/min/1.73m^2); Globulin 4.1 g/dL; Glucose 104 mg/dL (74-106); Potassium 3.5 mmol/L (3.5-5.1); Sodium 135 mmol/L (136-145); Total Protein 7.8 g/dL (6.4-8.2)
[2024-10-11 16:34] LABS: Acetaminophen <2.0 ug/mL (10.0-30.0)
[2024-10-11 16:41] LABS: Ammonia <10 umol/L (11-32)
[2024-10-11] MEDS: 0.9 % SODIUM CHLORIDE 1,000 ML 1000 ML IV (16:45)
[2024-10-11 17:17] LABS: SARS-CoV-2 Ag NEGATIVE (NEGATIVE)
--- NOTE | 2024-10-11 17:53 | PM.HP ---
HPI H&P: HPI History of Present Illness Chief complaint: WEAKNESS, CONFUSION Narrative: Urine screen is positive for buprenorphine as expected but negative for everything else including negative for salicylates, acetaminophen, and ethanol. This is a 63-year-old woman who was brought to the emergency room today here in [place] by her daughter with a 3-day history of generalized malaise, fatigue, and confusion. The patient had not really gotten out of bed for the last 3 days. She has not been eating. She has not been drinking. She is oriented only x 2. The daughter tells everyone that the patient is normally oriented x 3. According to the patient's daughter the patient had a similar thing go on a few weeks ago that got better after about 5 days and she did not seek medical attention. The patient normally does not really see doctors. She has not been taking most of her routine medications in a long time. But normally the patient is compliant with her Suboxone and her gabapentin. However, for the last 3 days, the patient has not taken any of her Suboxone or her gabapentin. Workup in the emergency room was largely unrevealing. Complete blood count and basic metabolic profile were normal. Urinalysis does not suggest urinary tract infection but does suggest dehydration. The patient denies development of new medical symptoms over the last few days or weeks. Over the last 3 days she has suffered with diarrhea, which may be from her missing doses of her Suboxone. She denies cough. She denies expectorate any sputum. She denies any dysuria. She just has a sensation that she is not hungry and does not want to eat. She denies heartburn. She denies acid reflux. According to the daughter the patient does vape. She used to smoke cigarettes heavily but has transition to vaping. She does not drink alcohol. She only drank alcohol heavily when she was very young. She currently does not work. I have made some efforts to get her on disability because of a back injury many years ago. When I asked the patient or orientation questions she says lying on my side. After much prompting she is able to say hospital. But she cannot really give me the date or the month or the year. On lab work her CBC is fairly normal. CT and iron are normal. Arterial blood gas shows that she is actually blowing off a little bit of her CO2. Her pH is normal at 7.405. On base metabolic profile her sodium is a little bit low at 135 and her potassium is a little bit low at 3.5. Creatinine is low at 0.53 but she has low muscle mass with a weight of only 68 kg. Ammonia is undetectable less than 10. Liver enzymes are not elevated. TSH is normal at 0.831. She is negative for influenza A, influenza B, and COVID. Opioid HPI Opioid Management Most Recent Pain and Opioid Data: Last Pain Scale 5 06/23/23, 12:15 Ur Phencyclidine Scrn, (NEGATIVE) Negative Today, 15:55 Review of Systems ROS Narrative A 10 point review of systems is attempted to be reviewed, but cannot be fully completed. The patient does not really answer yes or no to most of the questions. Her daughter does most of the talking in history providing. [facility] Medical History (Updated 10/11/24 @ 17:57 by NICKY MARSH) Chronic back pain ?M54.9 - Dorsalgia, unspecified (ICD-10) ?G89.29 - Other chronic pain (ICD-10) COPD (chronic obstructive pulmonary disease) ?J44.9 - Chronic obstructive pulmonary disease, unspecified (ICD-10) Surgical History (Updated 10/11/24 @ 17:57 by NICKY MARSH) History of cholecystectomy ?Z90.49 - Acquired absence of other specified parts of digestive tract (ICD-10) Family History (Updated 10/11/24 @ 17:57 by NICKY MARSH) Other Family history of cancer Family history of diabetes mellitus Family history of hypertension Heart disease Social History (Updated 10/11/24 @ 17:58 by NICKY MARSH) Smoking status: Former smoker Do you use any of these nicotine containing products: e-cigarettes Little interest or pleasure in doing things: not at all Feeling down, depressed, or hopeless: not at all Meds Home Medications and Allergies Home Medications ?Medication ?Instructions ?Recorded ?Confirmed ?Type ibuprofen 800 mg tablet 800 mg PO Q8H PRN pain #20 tabs 06/23/23 Rx buprenorphine 8 mg-naloxone 2 mg film 10/11/24 History sublingual film gabapentin 800 mg tablet mg 10/11/24 History omeprazole 40 mg capsule,delayed mg 10/11/24 History release Allergies Allergy/AdvReac Type Severity Reaction Status Date / Time No Known Drug Allergies Allergy Verified 10/11/24 15:41 Exam Narrative Exam Narrative: Lying on the ER cot the patient does look very tired and very malaised and very fatigued. She intermittently yawns every minute while I am in the room with her. She lets her daughter do most of the talking. Eyes: EOMI. No nystagmus. Neck: No thyromegaly. No jugular venous distention. Skin: Skin is appropriate for age. No systemic rashes or lesions. Mouth: Very poor dentition in place. No active dental caries. Pulmonary: Clear to auscultation throughout. No wheezing. No rhonchi. No crackles. Cardiac: Regular rate and rhythm. No murmurs auscultation. GI: Abdomen soft, nontender to palpation. Lower extremities: No edema in the ankles. No swelling or knots or cords in the calves bilaterally. Neurologic: Moves all 4 extremities with +5/5 strength. No obvious neurologic deficits. Her movements are all very slow, however. Constitutional Vital Signs, click to edit/add: Last Vital Signs Temp 98.1 F 10/11/24 15:41 Pulse 84 10/11/24 17:30 Resp 18 10/11/24 17:30 BP 114/70 10/11/24 17:00 Pulse Ox 98 10/11/24 17:30 O2 Del Method Room Air 10/11/24 16:18 Results Labs Labs: Short CBC 10/11/24 Range/Units 16:23 WBC 9.9 (4.0-11.0) 10^3/uL Hgb 12.4 (12.0-16.0) g/dL Hct 35.3 L (36.0-48.0) % Plt Count 272 (150-450) 10^3/uL BMP 10/11/24 15:55 Sodium 135 L Potassium 3.5 Chloride 98 Carbon Dioxide 27.5 BUN 16.0 Creatinine 0.53 L Glucose 104 Calcium 9.4 Liver Function 10/11/24 Range/Units 15:55 Total Bilirubin 0.5 (0.2-1.0) mg/dL AST 15 (15-37) U/L ALT 14 (14-59) U/L Alkaline Phosphatase 93 (46-116) U/L Albumin 3.7 (3.4-5.0) g/dL Urine 10/11/24 Range/Units 15:55 Urine Color Yellow (YELLOW) Urine Clarity Clear (CLEAR) Urine pH 6.0 (5.0-9.0) Ur Specific [place] >=1.030 A (1.005-1.025) Urine Protein 30 A (NEG/TRACE) mg/dL Urine Glucose (UA) Negative (NEGATIVE) mg/dL ABG ABG results: 10/11/24 16:12 ABG pH 7.405 ABG pCO2 34.7 L ABG pO2 77.4 L ABG HCO3 21.7 L ABG O2 Saturation 96.7 ABG Base Excess -3.0 L Assessment and Plan Assessment and Plan (1) Altered mental status: Qualifiers: Altered mental status type: disorientation Qualified Code(s): R41.0 - Disorientation, unspecified (2) Dehydration: Plan Assessment: Alteration in neurologic function. Etiology not entirely clear. Clinically at the bedside she shows no signs of recent or subacute stroke. Her mental processing is very slow. She is really only oriented x 2. Clinical evidence of dehydration with concentrated urine. Yawning and mild diarrhea which I believe are mild withdrawal symptoms from her buprenorphine. Chronic Suboxone use. Chronic gabapentin use. Chronic difficulty with sleeping at nighttime. Plan: With an exact etiology of the patient's current problem is not made clear in the emergency room we will put her in the hospital overnight for observation. I will continue to hydrate her with another liter of D5 LR. I favor resuming her buprenorphine by dividing this up into 2 mg sublingually twice a day. I favor restarting her gabapentin at a reduced dose of 400 mg p.o. 3 times daily. Consult to physical therapy. Consult Occupational Therapy. Checking some screening labs for as she is so weak and has such slow mental processing including folic acid, vitamin B12, and thiamine, and checking a lipid panel, A1c, and serum cortisol in the morning,
[2024-10-11] MEDS: DEXTROSE 5%-LACTATED RINGERS 1,000 ML 150 ML IV (18:31)
[2024-10-11 18:44] LABS: Folate 21.90 ng/mL (8.60-58.90)
[2024-10-11] MEDS: TRAZODONE HCL 50 MG TABLET 25 MG PO (21:28)
[2024-10-11] MEDS: PANTOPRAZOLE SODIUM 40 MG VIAL IV (21:28)
[2024-10-11] MEDS: GABAPENTIN 400 MG CAPSULE PO (21:28)
[2024-10-12 04:00] VITALS: BP 112/67; PULSE 77; TEMP 36.9; O2SAT 92
[2024-10-12] MEDS: GABAPENTIN 400 MG CAPSULE PO ×2 (05:33→13:01)
[2024-10-12 06:21] LABS: Hematocrit 32.9 % (36.0-48.0); Hemoglobin 11.2 g/dL (12.0-16.0); Immature Granulocytes Abs Auto 0.01 10^3/uL (0.00-0.03); Immature Granulocytes Pct Auto 0.1 % (0.0-0.5); Lymphocytes Absolute Auto 3.3 10^3/uL (1.2-3.8); Mean Corpuscular HGB Conc 34.0 g/dL (29.9-35.2); Mean Corpuscular Hemoglobin 28.7 pg (26.7-34.0); Mean Corpuscular Volume 84.4 fL (81.0-99.0); Platelet Count 264 10^3/uL (150-450); Red Blood Count 3.90 10^6/uL (4.20-5.40); White Blood Count 8.5 10^3/uL (4.0-11.0)
[2024-10-12 06:34] LABS: Alanine Aminotransferase 16 U/L (14-59); Albumin Globulin Ratio 0.9; Albumin Level 2.9 g/dL (3.4-5.0); Alkaline Phosphatase 66 U/L (46-116); Anion Gap 15.4; Aspartate Amino Transferase 11 U/L (15-37); Blood Urea Nitrogen 13.0 mg/dL (7.0-18.0); Calcium 8.5 mg/dL (8.5-10.1); Carbon Dioxide 26.0 mmol/L (21.0-32.0); Chloride 104 mmol/L (98-107); Cholesterol 181 mg/dL (<=200); Estimated GFR (African America >60 (>=60 mL/min/1.73m^2); Estimated GFR (Non-African Ame >60 (>=60 mL/min/1.73m^2); Globulin 3.2 g/dL; Glucose 96 mg/dL (74-106); HDL Cholesterol 43 mg/dL (40-60); Magnesium 1.7 mg/dL (1.8-2.4); Potassium 3.4 mmol/L (3.5-5.1); Prealbumin 14.3 mg/dL (20.9-45.5); Sodium 142 mmol/L (136-145); Total Protein 6.1 g/dL (6.4-8.2); Triglycerides 82 mg/dL (<=150); VLDL CHOLESTEROL 16.4 mg/dL
[2024-10-12 07:18] VITALS: BP 107/73; PULSE 78; TEMP 37.1; O2SAT 93
[2024-10-12] MEDS: PANTOPRAZOLE SODIUM 40 MG VIAL IV (08:52)
[2024-10-12] MEDS: BUPRENORPHINE HCL 2 MG TAB SUBL 4 MG SL (08:52)
[2024-10-12 11:58] VITALS: BP 112/69; PULSE 80; TEMP 36.9; O2SAT 93
[2024-10-12] MEDS: POTASSIUM CHLORIDE 10 MEQ ER TABLET 50 MEQ PO (13:10)
--- NOTE | 2024-10-12 13:53 | PM.DS1 ---
DS: Providers Provider Date of admission: 10/11/24 18:07 Primary care physician: ARACELI WILDER Consults: 10/11/24 17:45 Occupational Therapy Eval and Treat Routine Reason for consultation: weakness Has provider been notified: No Physical Therapy Eval and Treat Routine Reason for consultation: weakness Has provider been notified: No DS: Diagnosis Discharge Diagnosis (1) Altered mental status: Qualifiers: Altered mental status type: disorientation Qualified Code(s): R41.0 - Disorientation, unspecified (2) Dehydration: (3) Opiate withdrawal: Plan Presentation emergency room with profound lethargy and altered mental status and only oriented x 2. Clinical dehydration in the emergency room. Mild but clinically significant opiate withdrawal symptoms from the patient stopping her Suboxone about 3 days ago. Long-term problems with anxiety and difficulty sleeping at nighttime. DS: Summary Hospital Course Hospital Course: This is a 63-year-old woman that was brought to the [facility] ER by her daughter because the patient had not been acting herself for couple days and was really oriented x 2. In the ER workup was really unrevealing for any problem except that the urinalysis suggested dehydration. The patient had not been eating or drinking for the last 2 or 3 days. She had stopped taking her Suboxone and her gabapentin. CT scanning of her brain was normal. TSH was normal. In the ER that Monday she was very lethargic and was not able to provide a history. She was admitted to the hospital. Her buprenorphine was restarted at a lower dose of 4 mg divided up twice daily. Her gabapentin was restarted at half the dose at about 400 mg 3 times a day. She was given IV fluids to rehydrate her. The next morning she was like a new person. She was able to ambulate the halls and work with physical therapy. She was awake. She was conversant. I had used trazodone to help her sleep at nighttime and she was having residual headache. She was having some residual issues because of the intermittent use of her Suboxone: She was still having some loose bowel movements. She was having some abdominal cramping and discomfort. She was complaining of a headache. I recommended that she continue on the Suboxone at the prescribed amount. She should follow-up with her Suboxone provider to consider the optimum dose for her. I suggested that she may be able to gently titrate this down very gradually and get by with the lowest possible dose. She says that she has been using that successfully for the last 8 years. I also suggested that she follow-up with her primary care provider for work to treat her anxiety and insomnia and sleeplessness. Status at Discharge Functional status at discharge: independent ambulation Overall status at discharge: patient is progressing back to baseline Time Spent with Patient Time attestation: Total time spent providing and/or coordinating discharge services: 39. Exam Narrative Exam Narrative: On examination on rounds this morning this is a completely different patient than was in the emergency room yesterday afternoon. She is awake. She is alert. She can converse. She ambulated in the hallways with physical therapy. I am not sure that she really remembers me from yesterday. We discussed Suboxone therapy. I wanted to give her just enough buprenorphine that she would not precipitate withdrawals. It is not believe that she got the dose of buprenorphine last night because she immediately spit it out in front of the nurse. But she did take her gabapentin. We discussed anxiety and insomnia. I recommend that she follow-up with her primary care provider for that. She has been using [id number] store brand sleeping pills. I advised her to stop doing that, since Benadryl and other anticholinergic medications may be leading to cognitive impairment and even dementia. I recommended that she try low-dose melatonin, and other environmental measures to try and get her to sleep better at nighttime. Head: Normocephalic atraumatic. EOMI. Neurologic: Awake and alert and oriented x 3 today. Conversant. Epic showing improvement from yesterday. Pulmonary: Clear to auscultation throughout. No wheezing. No rhonchi. No crackles. Cardiac: Regular rate and rhythm. No rubs or gallops to auscultation. No murmurs at all. GI: Abdomen soft, slightly hyperactive bowel sounds. No pain to palpation throughout her abdomen. Opiate withdrawal: Still having some yawning, but much less than she was yesterday. Skin: Warm and dry and well-perfused. Constitutional Vital Signs, click to edit/add: Last Vital Signs Temp 98.5 F 10/12/24 11:58 Pulse 80 10/12/24 11:58 Resp 20 10/12/24 11:58 BP 112/69 10/12/24 11:58 Pulse Ox 93 L 10/12/24 11:58 O2 Del Method Room Air 10/12/24 11:58 DS: Data Data Completed and Pending Labs on day of discharge: Labs from last 24 hours 10/12/24 10/12/24 10/11/24 05:54 05:48 16:48 WBC 8.5 RBC 3.90 L Hgb 11.2 L Hct 32.9 L MCV 84.4 MCH 28.7 MCHC 34.0 RDW 12.6 Plt Count 264 MPV 8.9 L Neut % (Auto) 52.4 Lymph % (Auto) 38.1 [place] % (Auto) 5.9 Eos % (Auto) 2.6 Baso % (Auto) 0.9 Neut # (Auto) 4.5 Lymph # (Auto) 3.3 [place] # (Auto) 0.5 Eos # (Auto) 0.2 Baso # (Auto) 0.1 Abs Immat Gran (auto) 0.01 Imm/Tot Granulo (auto) 0.1 PT INR Puncture Site ABG pH ABG pCO2 ABG pO2 ABG HCO3 ABG O2 Saturation ABG Base Excess Abundio Test Sodium 142 Potassium 3.4 L Chloride 104 Carbon Dioxide 26.0 Anion Gap 15.4 BUN 13.0 Creatinine 0.40 L Est GFR ( Amer) >60 Est GFR (Non-Af Amer) >60 BUN/Creatinine Ratio 32.5 Glucose 96 Estimat Average Glucose 114 Hemoglobin A1c 5.6 Lactate Calcium 8.5 Phosphorus 3.0 Magnesium 1.7 L Total Bilirubin 0.4 AST 11 L ALT 16 Alkaline Phosphatase 66 Ammonia Troponin I High Sens C-Reactive Protein Total Protein 6.1 L Albumin 2.9 L Globulin 3.2 Albumin/Globulin Ratio 0.9 Prealbumin 14.3 L Triglycerides 82 Cholesterol 181 LDL Cholesterol, Calc 121.6 VLDL Cholesterol 16.4 HDL Cholesterol 43 Cholesterol/HDL Ratio 4.2 Vitamin D Level Folate TSH Urine Color Urine Clarity Urine pH Ur Specific [place] Urine Protein Urine Glucose (UA) Urine Ketones Urine Occult Blood Urine Nitrite Urine Bilirubin Urine Urobilinogen Ur Leukocyte Esterase Urine RBC Urine WBC Ur Squamous Epith Cells Urine Crystals Urine Bacteria Urine Casts Urine Mucus Ur Culture Indicated? Salicylates Urine Opiates Screen Ur Buprenorphine Scrn Ur Oxycodone Screen Urine Methadone Screen Acetaminophen Ur Barbiturates Screen U Tricyclic Antidepress Ur Phencyclidine Scrn Ur Amphetamines Screen U Methamphetamines Scrn U Benzodiazepines Scrn Urine Cocaine Screen U Cannabinoids Screen Ethanol Quant Influenza Type A Ag Negative Influenza Type B Ag Negative SARS-CoV-2 Ag (CV2AG) Negative 10/11/24 10/11/24 10/11/24 16:23 16:12 15:55 WBC 9.9 RBC 4.24 Hgb 12.4 Hct 35.3 L MCV 83.3 MCH 29.2 MCHC 35.1 RDW 12.3 Plt Count 272 MPV 8.4 L Neut % (Auto) 67.0 Lymph % (Auto) 25.8 [place] % (Auto) 4.9 Eos % (Auto) 1.1 Baso % (Auto) 0.9 Neut # (Auto) 6.6 H Lymph # (Auto) 2.5 [place] # (Auto) 0.5 Eos # (Auto) 0.1 Baso # (Auto) 0.1 Abs Immat Gran (auto) 0.03 Imm/Tot Granulo (auto) 0.3 PT 10.6 INR 1.00 Puncture Site Rr ABG pH 7.405 ABG pCO2 34.7 L ABG pO2 77.4 L ABG HCO3 21.7 L ABG O2 Saturation 96.7 ABG Base Excess -3.0 L Abundio Test Positive Sodium 135 L Potassium 3.5 Chloride 98 Carbon Dioxide 27.5 Anion Gap 13.0 BUN 16.0 Creatinine 0.53 L Est GFR ( Amer) >60 Est GFR (Non-Af Amer) >60 BUN/Creatinine Ratio 30.2 Glucose 104 Estimat Average Glucose Hemoglobin A1c Lactate 1.0 Calcium 9.4 Phosphorus Magnesium Total Bilirubin 0.5 AST 15 ALT 14 Alkaline Phosphatase 93 Ammonia <10 L Troponin I High Sens 4.8 C-Reactive Protein 6.49 H Total Protein 7.8 Albumin 3.7 Globulin 4.1 Albumin/Globulin Ratio 0.9 Prealbumin Triglycerides Cholesterol LDL Cholesterol, Calc VLDL Cholesterol HDL Cholesterol Cholesterol/HDL Ratio Vitamin D Level 13.2 Folate 21.90 TSH 0.831 Urine Color Yellow Urine Clarity Clear Urine pH 6.0 Ur Specific [place] >=1.030 A Urine Protein 30 A Urine Glucose (UA) Negative Urine Ketones >=80 A Urine Occult Blood Trace-i Urine Nitrite Negative Urine Bilirubin Small A Urine Urobilinogen 1.0 Ur Leukocyte Esterase Negative Urine RBC 5-10 A Urine WBC 0-2 A Ur Squamous Epith Cells Moderate A Urine Crystals None seen Urine Bacteria Trace A Urine Casts None seen Urine Mucus Small A Ur Culture Indicated? No Salicylates <2.8 Urine Opiates Screen Negative Ur Buprenorphine Scrn Positive A Ur Oxycodone Screen Negative Urine Methadone Screen Negative Acetaminophen <2.0 L Ur Barbiturates Screen Negative U Tricyclic Antidepress Negative Ur Phencyclidine Scrn Negative Ur Amphetamines Screen Negative U Methamphetamines Scrn Negative U Benzodiazepines Scrn Negative Urine Cocaine Screen Negative U Cannabinoids Screen Negative Ethanol Quant <3 Influenza Type A Ag Influenza Type B Ag SARS-CoV-2 Ag (CV2AG) Discharge Plan Discharge Disposition: Home, Self-Care Condition: Fair Discharge Medications: Continued omeprazole 40 mg capsule,delayed release(DR/EC) 40 mg PO .QD gabapentin 800 mg tablet 800 mg PO TID buprenorphine-naloxone 8-2 mg film 1 film sublingual .QD Print Language: Kazakh Patient Instructions: Dehydration (DC), Altered Mental Status (GEN) Forms: Portal Instructions Follow Up Appointments: Call MondayOct 14 for follow up with your PCP Araceli Wilder [phone]
[2024-10-12] MEDS: PROCHLORPERAZINE 10 MG/2 ML VIAL 5 MG IV (14:07)
[2024-10-13 06:38] LABS: Vitamin B12 219 pg/mL (232-1245)
--- NOTE | 2024-10-14 09:53 | PC.NURSE ---
Follow up appt. with Araceli Wilder NP on 10/25 @ [facility] [phone]
--- NOTE | 2024-10-14 14:12 | CM.DCFOLLOWU ---
1st attempt 10/14/24, no answer
--- NOTE | 2024-10-15 09:03 | CM.DCFOLLOWU ---
2nd attempt 10/15/24, no answer
[2024-10-17 00:08] LABS: Vitamin B1 (Thiamine), Blood 128.2 nmol/L (66.5-200.0)
== END 2024-10-12 17:10 | disposition home or self-care (01) ==
LOC: ER 17:34 → MS 18:12
PROVIDERS: Physician Assistant; Admitting Provider Hospitalist; Emergency Provider Emergency Medicine; PCP Nurse Practitioner; Visit Provider Hospitalist
DX: E86.0 Dehydration (principal); R41.0 Disorientation, unspecified; F11.23 Opioid dependence with withdrawal; F17.290 Nicotine dependence, other tobacco product, uncomplicated; Z90.49 Acquired absence of other specified parts of digestive tract; Z79.899 Other long term (current) drug therapy; F41.9 Anxiety disorder, unspecified; G47.00 Insomnia, unspecified
CPT/HCPCS: 36415; 36600; 70450; 71045; 80053; 80061; 80179; 80307; 80320; 80329; 81001; 82024; 82140; 82306; 82533; 82607; 82746; 82805; 83036; 83605; 83735; 84100; 84134; 84425; 84443; 84484; 85025; 85610; 86140; 87040; 87804; 87811; 93005; 94640; 96361; 96374; 96375; 96376; 97161; 99285; 99406; G0378; J0571; J0780